=== PATIENT | female | born 1970 | race Caucasian/White ===

== ENCOUNTER → 2017-11-27 09:35 | Outpatient (CLI) | payer OTHER, SELFPAY ==
--- NOTE | 2017-11-27 09:36 | DI.MG.S_ITS ---
BILATERAL DIGITAL SCREENING MAMMOGRAM 3D/2D WITH CAD: 11/27/2017 CLINICAL: Routine screening. [facility] There are scattered fibroglandular elements in both breasts. Current study was also evaluated with a Computer Aided Detection (CAD) system. No significant masses, calcifications, or other findings are seen in either breast. There has been no significant interval change. IMPRESSION: NEGATIVE There is no mammographic evidence of malignancy. A 1 year screening mammogram is recommended. This exam was interpreted at Station ID: [id number]. NOTE: For mammograms, a report in lay terms will be sent to the patient. Approximately 15% of breast malignancies will not be visualized mammographically. In the management of a palpable breast mass, a negative mammogram must not discourage biopsy of a clinically suspicious lesion. Electronically Signed By: Sharla sauceda/romulo:11/27/2017 16:59:29 letter sent: Normal Exam ACR BI-RADS Category 1: Negative 3341F
== END ==
PROVIDERS: Visit Provider Obstetrics & Gynecology
DX: Z12.31 Encounter for screening mammogram for malignant neoplasm of breast (principal)
CPT/HCPCS: 77063; 77067

== ENCOUNTER → 2018-11-29 10:52 | Outpatient (CLI) | payer OTHER, SELFPAY ==
--- NOTE | 2018-11-29 | DI.RAD.S_ITS ---
PROCEDURE: XR CERVICAL SPINE 2V OR 3V INDICATIONS: CHRONIC BACK PAIN TECHNIQUE: 3 view(s) of the cervical spine were acquired. COMPARISON: None. FINDINGS: Bones: No fractures or dislocations to the T1 level. The lateral masses of C1 appear intact on the odontoid view. C1-C2 relationship is preserved. There is straightening of cervical lordosis with gentle reversal at C6. Multilevel cervical spondylosis most pronounced at C5-6 and C6-7 but most severe at C6-7 where there is disc space loss and prominent endplate osteophyte formation. Mild lower cervical facet arthrosis. No suspicious bony lesions. Soft tissues: No prevertebral soft tissue swelling. IMPRESSION: 1. Cervical spine without acute osseous abnormalities. 2. Multilevel cervical spondylosis most pronounced at C5-6 and C6-7. Findings are most severe at C6-7. 3. There is straightening of normal cervical lordosis likely related to positioning and/or concurrent muscle spasms. Dictated by: Rodo Cedeno M.D. on 11/29/2018 at 13:38 Approved by: Rodo Cedeno M.D. on 11/29/2018 at 13:40
--- NOTE | 2018-11-29 | DI.RAD.S_ITS ---
PROCEDURE: XR THORACIC SPINE 2V INDICATIONS: CHRONIC BACK PAIN TECHNIQUE: 3 views of the thoracic spine were acquired. COMPARISON: None. FINDINGS: Bones: No fractures or dislocations. No suspicious bony lesions. 12 pairs of ribs are noted, and appear intact where visualized. Minimal lower thoracic spondylosis at the thoracolumbar junction. Soft tissues: No paravertebral stripe thickening. IMPRESSION: Thoracic spine without acute radiographic abnormalities. Minimal thoracolumbar junction spondylosis. Dictated by: Rodo Cedeno M.D. on 11/29/2018 at 13:40 Approved by: Rodo Cedeno M.D. on 11/29/2018 at 13:41
--- NOTE | 2018-11-29 | DI.RAD.S_ITS ---
PROCEDURE: XR LUMBAR SPINE 2-3V INDICATIONS: CHRONIC BACK PAIN TECHNIQUE: 2 views of the lumbar spine were acquired. COMPARISON: None. FINDINGS: Bones: 5 [id number] vertebrae are present. There is a gentle dextrocurvature of the lumbar spine. No acute vertebral body compression fractures. Mild multilevel lumbar spondylitic changes with associated facet arthrosis most pronounced in the mid and lower lumbar spine. No suspicious bony lesions. Soft tissues: Overlying bowel gas pattern is normal. No suspicious soft tissue calcifications. IMPRESSION: Lumbar spine without acute osseous abnormalities. Mild dextrocurvature of the lumbar spine with multilevel lumbar spondylosis most pronounced in the mid and lower lumbar spine. Dictated by: Rodo Cedeno M.D. on 11/29/2018 at 13:37 Approved by: Rodo Cedeno M.D. on 11/29/2018 at 13:38
[2018-11-29 12:37] LABS: BUN Creatinine Ratio 15.6 (6-22); Blood Urea Nitrogen 14 mg/dL (7-17); Calcium 9.7 mg/dL (8.4-10.2); Carbon Dioxide 25 mmol/L (22-32); Chloride 103 mmol/L (98-107); Estimated Glomerular Filt Rate > 60.0 mL/min (>60); Glucose 109 mg/dL (70-100); HEMOLYSIS < 15 (0-50); Potassium 4.3 mmol/L (3.4-5.1); Sodium 139 mmol/L (137-145)
[2018-11-29 12:44] LABS: Hemoglobin A1C% w Est Avg Glu 5.3 % (4.0-6.0)
== END ==
PROVIDERS: Visit Provider Student in an Organized Health Care Education/Training Program
DX: Z00.00 Encounter for general adult medical examination without abnormal findings (principal)
CPT/HCPCS: 36415; 72040; 72070; 72100; 80048; 83036

== ENCOUNTER → 2018-12-24 15:54 | Outpatient (CLI) | payer OTHER, SELFPAY ==
--- NOTE | 2018-12-24 | DI.MRI.S_ITS ---
PROCEDURE: MR LUMBAR SPINE WO CON INDICATIONS: LOWER BACK PAIN TECHNIQUE: Noncontrast sagittal T1 spin echo and T2 fast echo, sagittal STIR, axial T1 and T2 fast spin echo through the lumbar spine. In cases with scoliosis, additional coronal T2 fast spin echo may be performed. COMPARISON: None. FINDINGS: Image quality: Excellent. Alignment and Curvature: There is normal bony alignment. Bones: Small benign, intraosseous hemangioma noted in the L2 vertebral body small Schmorl's nodes noted in the superior endplate of the T12, L1, L2 and L3 vertebral bodies. No acute vertebral body compression fractures. Spinal Cord: Conus medullaris terminates at the L1 level. Visualized cord demonstrates normal signal and size. Paraspinous Soft Tissues: No paravertebral masses. L1-L2: Loss of disc signal. Mild, diffuse disc bulge. No central stenosis. No neural foraminal narrowing. No neural compression. L2-L3: Loss of disc signal. Mild, diffuse disc bulge. Mild narrowing of the central canal. Mild bilateral neural foraminal narrowing. No neural compression. Annular fissures noted. L3-L4: Loss of disc signal. Mild, diffuse disc bulge. Mild narrowing of the central canal. Mild bilateral neural foraminal narrowing. No neural compression. L4-L5: Loss of disc signal and slight loss of disc height. Mild to moderate diffuse disc bulge. Mild bilateral facet hypertrophy. Mild narrowing of the central canal. Mild bilateral neural foraminal narrowing. No neural compression. Posterior annulus fissures are noted. L5-S1: Normal appearance. IMPRESSION: 1. Mild multilevel degenerative disc disease. 2. Mild L4-L5 facet arthropathy. 3. Mild L2-L3, L3-L4 and L4-L5 central canal narrowing. 4. Mild bilateral L2-L3, L3-L4 and L4-L5 neural foraminal narrowing. 5. No neural compression. 6. L2-L3 and L4-L5 disc annulus fissures. Dictated by: Carrie Velasquez MD, PhD on 12/24/2018 at 17:15 Approved by: Carrie Velasquez MD, PhD on 12/24/2018 at 17:22
--- NOTE | 2018-12-24 15:55 | DI.MG.S_ITS ---
BILATERAL DIGITAL SCREENING MAMMOGRAM 3D/2D WITH CAD: 12/24/2018 CLINICAL: Routine screening. Comparison is made to exams dated: 11/27/2017 mammogram and 02/26/2013 mammogram - [facility]. The tissue of both breasts is heterogeneously dense. This may lower the sensitivity of mammography. Current study was also evaluated with a Computer Aided Detection (CAD) system. No significant masses, calcifications, or other findings are seen in either breast. There has been no significant interval change. IMPRESSION: NEGATIVE There is no mammographic evidence of malignancy. A 1 year screening mammogram is recommended. This exam was interpreted at Station ID: [id number]. NOTE: For mammograms, a report in lay terms will be sent to the patient. Approximately 15% of breast malignancies will not be visualized mammographically. In the management of a palpable breast mass, a negative mammogram must not discourage biopsy of a clinically suspicious lesion. Electronically Signed By: Chiki flynn/romulo:12/24/2018 17:14:30 letter sent: Normal Exam ACR BI-RADS Category 1: Negative 3341F
== END ==
PROVIDERS: Visit Provider Obstetrics & Gynecology
DX: Z12.31 Encounter for screening mammogram for malignant neoplasm of breast (principal); M54.5 Low back pain; M51.36 Other intervertebral disc degeneration, lumbar region; M47.816 Spondylosis without myelopathy or radiculopathy, lumbar region; M48.061 Spinal stenosis, lumbar region without neurogenic claudication
CPT/HCPCS: 72148; 77063; 77067

== ENCOUNTER → 2019-05-08 14:53 | Outpatient (CLI) | payer OTHER, SELFPAY ==
--- NOTE | 2019-05-08 | DI.MRI.S_ITS ---
PROCEDURE: MR CERVICAL SPINE WO CON INDICATIONS: Spondylosis w/o myelopathy or radiculopathy, cervical region TECHNIQUE: Noncontrast sagittal T1 spin echo and T2 fast spin echo, sagittal STIR, foraminal oblique sagittal T2 fast spin echo, and axial gradient echo or T2 fast spin echo through the cervical spine. COMPARISON: None. FINDINGS: Image quality: Excellent. Alignment and Curvature: There is trace of C4 and C5 anterolisthesis. There is bursal normal cervical spine curvature from C4-C7. Bone Marrow: Marrow demonstrates normal overall signal. Spinal Cord: Visualized spinal cord has normal size and signal. No cerebellar tonsillar herniation. Paraspinous Soft Tissues: No paravertebral masses. Prevertebral soft tissues are normal in thickness. C2-C3: Slight loss of the signal. No central stenosis. No neural foraminal narrowing. No neural compression. C3-C4: Slight loss of disc signal. No central stenosis. No neural foraminal narrowing. No neural compression. C4-C5: Loss of disc signal. Minimal, diffuse disc bulge. Mild bilateral facet hypertrophy. No central stenosis. No neural foraminal narrowing. No neural compression. C5-C6: Loss of the signal. Mild, diffuse disc bulge. Mild narrowing of the central canal. Mild bilateral facet hypertrophy. Mild bilateral uncovertebral joint hypertrophy. Mild bilateral neural foraminal narrowing. No neural compression. C6-C7: Loss of disc signal and height. Mild to moderate diffuse disc bulge. Mild to moderate narrowing of the central canal. Mild bilateral facet hypertrophy. Mild right uncovertebral joint hypertrophy. Moderate right and mild left neural foraminal narrowing. No neural compression. C7-T1: Normal appearance. IMPRESSION: 1. Multilevel degenerative disc disease 2. Multilevel facet and uncovertebral arthropathy. 3. Mild to moderate C6-C7 central canal narrowing. Mild C5-C6 central canal narrowing. 4. Moderate right and mild left C6-C7 neural foraminal narrowing. Mild bilateral C5-C6 neural foraminal narrowing. 5. No neural compression. Dictated by: Carrie Velasquez MD, PhD on 05/08/2019 at 18:25 Approved by: Carrie Velasquez MD, PhD on 05/08/2019 at 18:29
== END ==
PROVIDERS: PCP Student in an Organized Health Care Education/Training Program; Referring Provider Physical Medicine & Rehabilitation; Visit Provider Physical Medicine & Rehabilitation
DX: M47.812 Spondylosis without myelopathy or radiculopathy, cervical region (principal); M50.322 Other cervical disc degeneration at C5-C6 level; M48.02 Spinal stenosis, cervical region
CPT/HCPCS: 72141

== ENCOUNTER → 2020-10-13 09:22 | Outpatient (CLI) | payer OTHER, SELFPAY ==
[2020-10-13 12:00] LABS: COVID19 -Nasal RAPID Negative (Negative)
== END ==
PROVIDERS: PCP Student in an Organized Health Care Education/Training Program; Referring Provider Physician Assistant; Visit Provider Physician Assistant
DX: Z01.812 Encounter for preprocedural laboratory examination (principal); Z20.822 Contact with and (suspected) exposure to COVID-19
CPT/HCPCS: 87635

== ENCOUNTER 2020-10-15 06:13 | Day surgery (SDC) | payer OTHER, SELFPAY ==
[2020-10-11 10:23] VITALS: BMI 34.9
[2020-10-15 07:09] VITALS: BP 137/88; PULSE 68; RESP 16; TEMP 36.3; O2SAT 97; BMI 34.9
[2020-10-15] MEDS: LACTATED RINGERS 1,000 ML 100 ML IV ×2 (07:28→09:58)
--- NOTE | 2020-10-15 07:41 | PM.PREOP ---
Pre-operative Note COVID-19 COVID-19 status: Negative Result date/Date tested (Pos, Neg/Pending): 10/13/20 Interval Note History & Physical reviewed/Exam performed by Physician: Yes Changes to H&P: No
--- NOTE | 2020-10-15 07:42 | P.OP_ITS ---
Operative Date/Time/Diagnoses Date of procedure: 10/15/20 Time of procedure: 07:42 Pre-op diagnosis: Left hallux abductovalgus with bunion Post-op diagnosis: same Procedure & Clinicians Procedure: Left bunionectomy with first metatarsocuneiform arthrodesis Same procedure as scheduled: Yes Indications: Painful left foot bunion. Conservative measures failed to alleviate her pain and she wished to have surgical intervention at this time. We spoke of the risks, potential complications, expected outcomes. Consent was signed, no contraindications to the procedure at this time. Surgeon: Ariadna Avery Click Yes if Unassisted: Yes Anesthesia Type: General Operative Notes Closure Type: primary Prosthetic devices, grafts, tissues, transplants, or devices: [place] Lapidus plate, 4.0 cannulated screw, 2.5 x 3 locking and x1 nonlocking screws. Estimated Blood Loss (mL): 100 Blood products transfused: none Tourniquet time (min): 87 Procedure in detail: The patient was brought to the operating room and placed on the operating table in the supine position. The tourniquet was placed about the left thigh. Well padded appropriately aligned. After induction of general anesthesia the foot and ankle were prepped and draped in the usual aseptic manner. The tourniquet was inflated. Incision was made over the 1st metatarsal cuneiform joint extending to the 1st metatarsophalangeal joint. The incision was deepened through subcutaneous tissues being careful to identify and retract all vital neurovascular structures. All bleeders were cauterized and ligated as necessary. A capsulotomy was performed to the 1st MTPJ exposing the enlarged medial eminence, which appeared to be showing a good amount of wear on the distal medial aspect but the central portion of the metatarsal head was fairly clean and clear along the cartilage. The saw was used to resect the medial eminence. Attention was then directed to the 1st metatarsocuneiform joint which was entered. The joint was taken down and a saw was used to resect the base of the 1st metatarsal and the distal leading edge of the medial cuneiform. This was done at a slight angle on the medial cuneiform to allow for closure of the intermetatarsal angle. The area was then able to be closed and the alignment was good. A drill was used to fenestrate either side of the former MC joint and fish scaling was also used. The area was irrigated with copious amounts normal sterile saline. With the aid of C-arm the guidewire was placed for temporary fixation through the 1st metatarsocuneiform joint. At this point the miniature C-arm used was having problems taking the images, and there were a number of minutes that were spent with our lead section supervisor working with remedying that. Thankfully it was able to be corrected swiftly and we were able to resume the procedures. Next the plate was trialed. The lag screw was placed from distal to proximal. The fusion site showed good compression and closure. The plate was then attached with the corresponding screws in the standard AO technique. This was reviewed on C-arm and noted to be strong and in appropriate alignment. Once this was loaded it would appear that there did not need to be a distal metatarsal osteotomy or hallux phalangeal osteotomy and instead capsule balancing techniques with the soft tissue were appropriate. We did need to take some additional time for control of bleeding but this was also resolved aided by allowing the tourniquet to relax. Once again after irrigation the medial 1st MTP capsule was resected and closed down and alignment with Vicryl the tourniquet was deflated and a prompt hyperemic response was seen in the foot. Deep and subcutaneous closure was closed performed with Vicryl and nylon to the skin. The foot was dressed with a lightly compressive sterile dressing. She was then placed in a postoperative shoe and transferred to PACU with vital signs stable. Post-operative Condition: stable Disposition: PACU Plan for aftercare: Following a period of postoperative monitoring the patient be discharged home on written and oral postoperative instructions including keeping the dressing dry and intact, nonweightbearing to the foot, icing and elevating the foot when seated at home. DVT prevention techniques have been reviewed. For the 1st postoperative visit the dressing will be changed and close to the 4th postoperative week we will likely take x-rays of the foot.
[2020-10-15] MEDS: CEFAZOLIN 1 GM VIAL 2 GM IV (08:05)
[2020-10-15] MEDS: BUPIVACAINE 0.5% (PF) VIAL 30 ML INJ (08:48)
[2020-10-15 10:33] VITALS: BP 138/70; PULSE 82; RESP 14; O2SAT 96
[2020-10-15 10:38] VITALS: BP 138/77; PULSE 84; RESP 16; O2SAT 95
[2020-10-15 10:44] VITALS: BP 134/75; PULSE 87; RESP 15; TEMP 36.7; O2SAT 95
[2020-10-15 10:53] VITALS: BP 131/79; PULSE 83; RESP 14; O2SAT 95
[2020-10-15 11:06] VITALS: BP 131/80; PULSE 79; RESP 14; TEMP 36.3; O2SAT 95
--- NOTE | 2020-10-15 11:29 | SUR.OPER ---
Supine on padded OR bed, head on pillow, arms secured on padded arm boards at <90 degrees abduction, legs uncrossed, safety belt at waist, tape over blanket over lowerright leg, left leg draped free.
== END 2020-10-15 11:30 | disposition home or self-care (01) ==
PROVIDERS: PCP Student in an Organized Health Care Education/Training Program; Referring Provider Podiatrist; Visit Provider Podiatrist
PROC: 0QBP0ZZ Excision of Left Metatarsal, Open Approach (ICD-10-PCS; CPT 28292; principal; 2020-10-15 07:45)
DX: M20.12 Hallux valgus (acquired), left foot (principal); E66.9 Obesity, unspecified; Z68.34 Body mass index [BMI] 34.0-34.9, adult
CPT/HCPCS: 28297; J0690; J1100; J1885; J2250; J2405; J2704; J3010

== ENCOUNTER → 2021-05-25 12:59 | Outpatient (CLI) | payer OTHER, SELFPAY ==
[2021-05-25 14:35] LABS: COVID19 -Nasal RAPID Negative (Negative)
== END ==
PROVIDERS: PCP Student in an Organized Health Care Education/Training Program; Visit Provider Family Medicine Sleep Medicine
DX: Z20.822 Contact with and (suspected) exposure to COVID-19 (principal)
CPT/HCPCS: 87635; C9803

== ENCOUNTER 2021-05-27 10:14 | Day surgery (SDC) | payer OTHER, SELFPAY ==
[2021-05-27] VITALS (11 sets, daily range): BP systolic 142–157; BP diastolic 78–94; PULSE 77–85; RESP 14–19; TEMP 36.2–37.1; O2SAT 93–97; BMI 33.4
[2021-05-27] MEDS: LACTATED RINGERS 1,000 ML 100 ML IV ×2 (11:10→13:00)
--- NOTE | 2021-05-27 11:12 | SUR.PREOP ---
1115-Dr Avery here, and clarified tramadol order=to be given postop not preop.
--- NOTE | 2021-05-27 11:36 | PM.PREOP ---
Pre-operative Note COVID-19 COVID-19 status: Negative Result date/Date tested (Pos, Neg/Pending): 05/25/21 Interval Note History & Physical reviewed/Exam performed by Physician: Yes Changes to H&P: No
--- NOTE | 2021-05-27 11:38 | P.OP_ITS ---
Operative Date/Time/Diagnoses Date of procedure: 05/27/21 Time of procedure: 11:38 Pre-op diagnosis: Right hallux abductovalgus with bunion pain Post-op diagnosis: same Procedure & Clinicians Procedure: Right bunionectomy with first metatarsocuneiform arthrodesis Same procedure as scheduled: Yes Indications: Painful bunion right foot. Conservative measures failed to alleviate her pain and she wished to have surgical intervention this time. We spoke of the risks, potential complications, expected outcomes. Consent was signed, no contrai ndication to the procedure this time. Surgeon: Ariadna Avery Click Yes if Unassisted: Yes Anesthesia Type: General Operative Notes Closure Type: primary Specimen(s): none sent Prosthetic devices, grafts, tissues, transplants, or devices: [place] Lapidus plate, 4.0 cannulated screw, 2.7 x3 locking screws, 2.7 x1 non- locking screw 2-0 ticron, 3-0, 4-0 Vicryl, 3-0 nylon Estimated Blood Loss (mL): 30 Tourniquet time (min): 93 Procedure in detail: The patient was brought to the operating room and placed on the operating table in the supine position. The tourniquet was placed about the right thigh.? Well padded, appropriately aligned.? After induction of general anesthesia the foot and ankle were prepped and draped in the usual aseptic manner.? The tourniquet was inflated. Incision was made over the right 1st metatarsal cuneiform joint extending to the 1st metatarsophalangeal joint.? The incision was deepened through subcutaneous tissues being careful to identify and retract all vital neurovascular structures.? All bleeders were cauterized and ligated as necessary.? A capsulotomy was performed to the 1st MTPJ exposing the enlarged medial eminence.? The saw was used to resect the medial eminence.? Attention was then directed to the 1st metatarsocuneiform joint which was entered.? The joint was taken down and a saw was used to resect the base of the 1st metatarsal and the distal leading edge of the medial cuneiform.? This was done at a slight angle on the medial cuneiform to allow for closure of the intermetatarsal angle.? A small k-wire was used to fenestrate either side of the former MC joint and fish scaling was also used.? The area was irrigated with copious amounts normal sterile saline.? With the aid of C-arm the guidewire was placed for temporary fixation through the 1st metatarsocuneiform joint.? Next the plate was trialed. The lag screw was placed from distal to proximal across the metatarsocuneform joint.? The fusion site showed good compression and closure as well as reduction of the intermetatarsal angle.? The plate was then attached with the corresponding screws in the standard AO technique.? This was reviewed on C-arm and noted to be strong and in appropriate alignment.? The screws were verified to not be impinging other bone or into joint space. Once the foot was loaded it would appear that there did not need to be a distal metatarsal osteotomy or hallux phalangeal osteotomy and instead capsule balancing techniques with the soft tissue were appropriate.?I used the saw again to revise the contours of the first metatarsal head dorsally and medially. Once again after irrigation the first interspace distally was entered and a lateral release performed. The medial 1st MTP capsule was closed down in alignment with 2-0 ticron and 3-0 Vicryl. The tourniquet was deflated and a prompt hyperemic response was seen in the foot. Deep and subcutaneous closure wa s closed performed with 4-0 Vicryl and 3-0 nylon to the skin. The foot was dressed with a lightly compressive sterile dressing.? She was then placed in a postoperative boot and transferred to PACU with vital signs stable.? Post-operative Condition: stable Disposition: PACU Plan for aftercare: Following a period of postoperative monitoring the patient will be discharged to home on written and oral postoperative instructions including keeping the dressing dry and intact, nonweightbearing to the foot, icing and elevating the foot when seated at home.? DVT prevention techniques have been reviewed. X-rays to be taken four weeks following today.
[2021-05-27] MEDS: CEFAZOLIN 2 GM/20 ML SYRINGE IV (11:54)
[2021-05-27] MEDS: BUPIVACAINE 0.5% (PF) VIAL 30 ML INJ (12:40)
[2021-05-27] MEDS: ACETAMINOPHEN 325 MG TABLET 975 MG PO (14:42)
[2021-05-27] MEDS: TRAMADOL 50 MG TABLET PO (14:43)
== END 2021-05-27 15:35 | disposition home or self-care (01) ==
PROVIDERS: PCP Student in an Organized Health Care Education/Training Program; Referring Provider Podiatrist; Visit Provider Podiatrist
PROC: 0QBN0ZZ Excision of Right Metatarsal, Open Approach (ICD-10-PCS; CPT 28292; principal; 2021-05-27 11:45)
DX: M20.11 Hallux valgus (acquired), right foot (principal)
CPT/HCPCS: 28297; J0690; J1100; J2405; J2704; J3010